=== PATIENT | female | born 1985 | race American Indian/Alaskan Native ===

== ENCOUNTER 2017-06-05 18:33 | Emergency (ER) | payer MEDICAID ==
[2017-06-05] MEDS ORDERED: NORCO 10/325 PO ONE (20:06)
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
--- NOTE | 2017-06-05 21:17 | XRay Report ---
FINAL REPORT EXAM: XR SHOULDER 2+V RT HISTORY: shoulder pain TECHNIQUE: Right shoulder three views 4 images PRIORS: None. FINDINGS: Visualized portion of the right lung appears clear. Bone mineralization appears within normal limits. No acute fracture or subluxation is identified. No gross abnormality is seen in the visualized soft tissues. IMPRESSION: 1. No acute osseous abnormality is identified.
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
[2017-06-05 23:28] VITALS: BP 135/91
== END 2017-06-05 23:05 | disposition home or self-care (01) ==
LOC: ED 18:33
DX: S50.312A Abrasion of left elbow, initial encounter (principal); M25.511 Pain in right shoulder; M25.562 Pain in left knee; F12.90 Cannabis use, unspecified, uncomplicated; V89.2XXA Person injured in unspecified motor-vehicle accident, traffic, initial encounter; Y93.89 Activity, other specified; Y99.9 Unspecified external cause status; Y92.410 Unspecified street and highway as the place of occurrence of the external cause
CPT/HCPCS: 71020; 99283